=== PATIENT | female | born 2000 | race Caucasian/White ===

== ENCOUNTER 2022-07-25 10:58 | Inpatient (IN) | payer MEDICAID ==
[~2022-07-25] VITALS: Ht 162.6 cm; Wt 112.9 kg
[2022-07-25] VITALS (54 sets, daily range): BP systolic 82–167; BP diastolic 43–82
[2022-07-25] MEDS ORDERED: LIDOCAINE 1% INJ 10 ML VIAL INJ PRN (11:30)
[2022-07-25 11:43] LABS: BASOPHILS % (AUTO) 0 % (0-10); EOSINOPHILS # (AUTO) 0.1 10^3/uL (0.0-0.3); EOSINOPHILS % (AUTO) 1 % (0-10); HEMATOCRIT 37 % (35-52); HEMOGLOBIN 12.6 g/dL (11.5-16.0); LYMPHOCYTES # (AUTO) 1.5 10^3/uL (1.0-4.0); LYMPHOCYTES % (AUTO) 15 % (12-44); MEAN CORPUSCULAR HEMOGLOBIN 30 pg (25-34); MEAN CORPUSCULAR HGB CONC 34 g/dL (32-36); MEAN CORPUSCULAR VOLUME 89 fL (80-99); MEAN PLATELET VOLUME 10.6 fL (9.0-12.2); MONOCYTES # (AUTO) 0.7 10^3/uL (0.0-1.0); MONOCYTES % (AUTO) 7 % (0-12); NEUTROPHILS # (AUTO) 7.2 10^3/uL (1.8-7.8); NEUTROPHILS % (AUTO) 75 % (42-75); PLATELET COUNT 186 10^3/uL (130-400); WHITE BLOOD COUNT 9.7 10^3/uL (4.3-11.0)
[2022-07-25] MEDS: D5 LR IV SOLUTION 1,000 ML IV SCH ×2 (11:43→19:24)
[2022-07-25] MEDS ORDERED: OXYTOCIN PRE-MIX DRIP 500 ML IV SCH (12:45)
--- NOTE | 2022-07-25 13:33 | History & Physical-OB ---
MARISOL YOUSSEF 07/25/22 1332: OB - Chief Complaint & HPI Date/Time Date of Admission: Date of Admission: Jul 25, 2022 at 10:58 Date seen by a Provider: Jul 25, 2022 Time Seen by a Provider: 13:23 Chief Complaint/History OB-Reason for Admission/Chief: Induction of Labor Hx : 2 Hx Para: 1 Expected Date of Delivery: Jul 25, 2022 Gestational Age in Weeks: 40 Gestational Age in Days: 0 History of Labs Blood Type A+ HepB NR HIV NR RPR NR Rubella immune GBS neg Allergies and Home Medications Allergies Coded Allergies: adhesive tape (Verified Allergy, Unknown, 07/25/22) butorphanol (Verified Allergy, Unknown, 07/25/22) latex (Verified Allergy, Unknown, 07/25/22) tetanus and diphtheria toxoids (Verified Allergy, Unknown, 07/25/22) Patient Home Medication List Home Medication List Reviewed: Yes OB - History Hx of Present Care: Yes Ultrasounds: Normal mid trimester US Obstetrical Complications: None Medical Complications: None Obstetrical History Hx : 2 Hx Para: 1 Hx # Term Pregnancies: 0 Hx # Pregnancies: 0 Number of Living Children: 0 Hx Termination: Yes Hx Total # of Abortions (Spona: 1 Patient Past Medical History none Immunizations Influenza Vaccine Up-to-Date: Yes; Up-to-Date COVID19 Vaccine Space [employer] Faculty Member: KIMBERLYNA OB - Admission Exam Physical Exam Vitals: Vital Signs 07/25/22 07/25/22 11:20 12:52 Pulse 90 Resp 18 B/P (MAP) 119/73 (88) Pulse Ox 98 O2 Delivery Room Air HEENT: NCAT Heart: Rhythm Normal Lungs: Clear Abdomen: Non tender Extremities: Normal Reflexes: Normal Cervical Dilatation: 3cm Effacement: 75% Membranes: Ruptured Amniotic Fluid: Clear Heart Rate: 130's Contractions on Admission: None Labs Laboratory Tests Test 07/25/22 11:30 Range/Units White Blood Count 9.7 4.3-11.0 10^3/uL Red Blood Count 4.17 3.80-5.11 10^6/uL Hemoglobin 12.6 11.5-16.0 g/dL Hematocrit 37 35-52 % Mean Corpuscular Volume 89 80-99 fL Mean Corpuscular Hemoglobin 30 25-34 pg Mean Corpuscular Hemoglobin Concent 34 32-36 g/dL Red Cell Distribution Width 14.9 H 10.0-14.5 % Platelet Count 186 130-400 10^3/uL Mean Platelet Volume 10.6 9.0-12.2 fL Immature Granulocyte % (Auto) 2 % Neutrophils (%) (Auto) 75 42-75 % Lymphocytes (%) (Auto) 15 12-44 % Monocytes (%) (Auto) 7 0-12 % Eosinophils (%) (Auto) 1 0-10 % Basophils (%) (Auto) 0 0-10 % Neutrophils # (Auto) 7.2 1.8-7.8 10^3/uL Lymphocytes # (Auto) 1.5 1.0-4.0 10^3/uL Monocytes # (Auto) 0.7 0.0-1.0 10^3/uL Eosinophils # (Auto) 0.1 0.0-0.3 10^3/uL Basophils # (Auto) 0.0 0.0-0.1 10^3/uL Immature Granulocyte # (Auto) 0.2 H 0.0-0.1 10^3/uL OB - Assessment/Plan/Diagnosis Assessment Assessment: induction of labor Admission Dx 21 y/o IOL @ 40 weeks Admission Status: Inpatient Order (span 2 midnights) Reason for Inpatient Admission: IOL @ 40 weeks Plan Plan: Induction Induction Method: per Pitocin Protocol CHAPIN MONROE DO 07/25/222132: Allergies and Home Medications Allergies Coded Allergies: adhesive tape (Verified Allergy, Unknown, 07/25/22) butorphanol (Verified Allergy, Unknown, 07/25/22) latex (Verified Allergy, Unknown, 07/25/22) tetanus and diphtheria toxoids (Verified Allergy, Unknown, 07/25/22) OB - Assessment/Plan/Diagnosis Plan Other Plan Verification and Attestation of Medical Student E/M Service A medical student performed and documented this service in my presence. I reviewed and verified all information documented by the medical student and made modifications to such information, when appropriate. I personally performed the physical exam and medical decision making. Chapin Monroe, Jul 25, 2022,21:33 MARISOL YOUSSEF Jul 25, 2022 13:32 CHAPIN MONROE DO Jul 25, 2022 21:33
[2022-07-25] MEDS ORDERED: fentaNYL 2 mcg/ml BUPIVA 0.125 100 ML ONE (15:46)
[2022-07-25] MEDS ORDERED: LIDOCAINE PF 2% 5 ML (XYLOCAINE) VIAL ONE (16:10)
[2022-07-25] MEDS ORDERED: fentaNYL INJ 100 MCG/2 ML AMP ONE (16:10)
[2022-07-25] MEDS ORDERED: ONDANSETRON 4 MG/2 ML (SDV) Z0FRAN IV PRN (16:45)
[2022-07-25] MEDS ORDERED: diphenhydrAMINE 50 MG/ML INJ (BENADRYL) IV PRN (16:45)
[2022-07-25] MEDS ORDERED: NALOXONE 0.4 MG/ML 1 ML (NARCAN) VIAL IV PRN ×3 (16:45→21:45)
[2022-07-25] MEDS ORDERED: LACTATED RINGERS 1,000 ML IV SCH (16:45)
[2022-07-25] MEDS ORDERED: fentaNYL 2 mcg/ml BUPIVA 0.125 100 ML EPI SCH (16:45)
[2022-07-25] MEDS ORDERED: METOCLOPRAMIDE INJ 10 MG/2 ML (REGLAN) IV PRN (16:45)
[2022-07-25] MEDS ORDERED: BENZOCAINE/MENTHOL (DERMOPLAST) 56 ML CAN TP PRN (21:45)
[2022-07-25] MEDS ORDERED: MEASLES,MUMPS,RUBELLA 1 EA INJ SQ ONE (21:45)
[2022-07-25] MEDS ORDERED: DIBUCAINE 1% OINTMENT 28 GM TUBE TOP PRN (21:45)
[2022-07-25] MEDS: CATHETER FLUSH 10 ML SYR IV SCH ×3 (22:00→22:26)
[2022-07-25] MEDS ORDERED: METHYLERGONOVINE 0.2 MG/ML (METHERGINE) AMP ONE (22:33)
[2022-07-25] MEDS ORDERED: HYDROmorphone 2 MG/ML VIAL (DILAUDID) ONE (22:37)
[2022-07-25] MEDS: OXYTOCIN PRE-MIX DRIP 500 ML IV SCH ×2 (22:59→23:43)
--- NOTE | 2022-07-25 22:59 | OB Labor & Delivery Record ---
L&D History Date of Service Date of Service: Jul 25, 2022 History Expected Date of Delivery: Jul 25, 2022 Gestational Age in Weeks: 40 Hx : 2 Hx Para: 1 Complications Events: Routine care Operative Indications (Cesarea: N/A-Vaginal Delivery Intrapartal Events: None L&D Stage1 Stage One Onset of Labor - Date: Jul 25, 2022 Monitors and Tracing Monitor Mode: External Heart Rate: 125 Monitor Accelerations: Uniform Monitor Decelerations: None Station: 0 Back Sizer Variability: Moderate (11-25) Short Term Variability: Present Vital Signs VS - Last 72 Hours, by Label 07/25/22 07/25/22 07/25/22 07/25/22 11:20 11:20 12:52 13:22 Temp 36.8 36.7 Pulse 98 98 90 85 Resp 18 18 18 18 B/P (MAP) 126/77 (93) 119/73 (88) 124/74 (91) Pulse Ox 98 98 O2 Delivery Room Air Room Air Room Air Room Air 07/25/22 07/25/22 07/25/22 07/25/22 13:39 13:53 14:08 14:23 Pulse 89 96 86 81 Resp 18 18 18 18 B/P (MAP) 126/61 (82) 112/59 (76) 121/69 (86) 108/60 (76) O2 Delivery Room Air Room Air Room Air Room Air 07/25/22 07/25/22 07/25/22 07/25/22 14:45 14:51 15:07 15:21 Pulse 78 83 81 78 Resp 18 18 18 18 B/P (MAP) 92/50 (64) 97/55 (69) 92/61 (71) 99/59 (72) O2 Delivery Room Air Room Air Room Air Room Air 07/25/22 07/25/22 07/25/22 07/25/22 15:39 15:52 16:09 16:22 Pulse 94 81 86 95 Resp 18 18 18 18 B/P (MAP) 122/61 (81) 105/60 (75) 112/75 (87) 121/56 (77) Pulse Ox 97 O2 Delivery Room Air Room Air Room Air Room Air 07/25/22 07/25/22 07/25/22 07/25/22 16:26 16:28 16:31 16:33 Temp 36.1 Pulse 96 93 94 100 Resp 18 18 18 18 B/P (MAP) 118/57 (77) 115/56 (75) 112/56 (74) 93/56 (68) Pulse Ox 98 O2 Delivery Room Air Room Air Room Air Room Air 07/25/22 07/25/22 07/25/22 07/25/22 16:37 16:40 16:42 16:45 Pulse 117 121 115 118 Resp 18 18 18 18 B/P (MAP) 91/52 (65) 91/55 (67) 99/58 (72) 101/56 (71) Pulse Ox 100 97 O2 Delivery Room Air Room Air Room Air Room Air 07/25/22 07/25/22 07/25/22 07/25/22 16:48 16:51 16:58 17:07 Pulse 102 109 92 92 Resp 18 18 18 18 B/P (MAP) 91/52 (65) 98/55 (69) 100/58 (72) 100/56 (71) Pulse Ox 98 99 99 98 O2 Delivery Room Air Room Air Room Air Room Air 07/25/22 07/25/22 07/25/22 07/25/22 17:16 17:22 17:40 17:55 Pulse 91 87 83 94 Resp 18 18 18 18 B/P (MAP) 116/69 (85) 119/71 (87) 112/67 (82) 102/63 (76) Pulse Ox 98 99 99 100 O2 Delivery Room Air Room Air Room Air Room Air 07/25/22 07/25/22 07/25/22 07/25/22 18:11 18:27 18:40 18:54 Pulse 85 95 90 94 Resp 18 18 18 18 B/P (MAP) 111/71 (84) 112/72 (85) 111/68 (82) 118/75 (89) Pulse Ox 99 100 98 98 O2 Delivery Room Air Room Air Room Air Room Air 07/25/22 07/25/22 07/25/22 07/25/22 19:10 19:25 19:37 20:12 Temp 35.8 Pulse 92 92 109 Resp 18 B/P (MAP) 115/73 (87) 112/70 (84) 112/80 (91) Pulse Ox 98 99 99 O2 Delivery Room Air Room Air Room Air 407/25/22 07/25/22 07/25/22 20:28 20:43 20:58 21:11 Pulse 124 112 122 99 B/P (MAP) 109/60 (76) 130/77 (94) 153/74 (100) 167/82 (110) Pulse Ox 100 99 98 O2 Delivery Room Air Room Air Room Air Room Air 07/25/22 21:26 Pulse 113 B/P (MAP) 158/69 (98) O2 Delivery Room Air Rupture of Membranes Spontaneous Ruture of Membrane: No Amniotic Membrane Rupture Time: 1303 Amniotic Membrane Fluid Desc.: Clear Vaginal Bleeding Description: Normal Show Induction/Anesthesia Epidural Cath Placement - Time: 1621 Progress/Notes Patient admitted for postdates IOL. AROM performed followed by pitocin augmentation to max dose of 6 mu. Epidural placed at patient request, she then progressed to complete and + 1 station L&D Stage2 Stage Two Stage II Date: Jul 25, 2022 Monitors and Tracing Monitor Mode: External Heart Rate: 125 Position: Right Occiput Anterior Presentation: Vertex Cord Descript/Complications Cord Vessel Description: 3 Vessels Delivery Type Infant Delivery Method: Spontaneous Vaginal Anterior Shoulder: Left Episiotomy/Perineal Laceration Laceraction(s)/Extensions: Yes Episiotomy Description: Perineal Extension/lac, 2nd degree Degree (describe repair) 3-0 vicryl suture and 2-0 used to repair 2nd degree perineal laceration in usual fashion. Condition of Infant Delivery 1 minute Comment: 9 5 minute Comment: 9 Notes Live male infant weight 9lbs 14 oz Condition of Condition of : Living Exam: No Observed Abnormalities Resuscitation Resuscitation: N/A - Spontaneous Resp L&D Stage3 Stage Three Stage III Date: Jul 25, 2022 Pictocin Pitocin Administration mu/min: 6 Pitocin ml/hr: 6 Pitocin Administration Comment: 30 mu wide open after delivery of placenta Placenta Delivery Placenta Delivery: Spontaneous Delivery Summary Summary Estimated blood loss (mL): 650 Attending at delivery: Russ Monroe DO Condition of Delivery Examined: Cervix Examined, Uterus Explored Post Hemorrhage: Yes Intervention Required .02 mg Methergine given IM with good tone response. Condition of Mother stable Condition of (s) stable RUSS MONROE DO Jul 25, 2022 22:59
[2022-07-25] MEDS ORDERED: METHYLERGONOVINE 0.2 MG/ML (METHERGINE) AMP IM ONE ×2 (23:00→23:30)
[2022-07-25] MEDS: WITCH HAZEL(TUCKS) 40 EA JAR TOP PRN (23:11)
[2022-07-25] MEDS ORDERED: HYDROmorphone 2 MG/ML VIAL (DILAUDID) IVP ONE (23:15)
[2022-07-25] MEDS: IBUPROFEN 600 MG (MOTRIN) TAB PO SCH (23:55)
[2022-07-26] VITALS (7 sets, daily range): BP systolic 107–125; BP diastolic 66–76
[2022-07-26] MEDS: D5 LR IV SOLUTION 1,000 ML IV SCH (00:32)
[2022-07-26 05:45] LABS: BASOPHILS # (AUTO) 0.1 10^3/uL (0.0-0.1); BASOPHILS % (AUTO) 0 % (0-10); EOSINOPHILS % (AUTO) 0 % (0-10); HEMATOCRIT 29 % (35-52); HEMOGLOBIN 9.5 g/dL (11.5-16.0); LYMPHOCYTES # (AUTO) 0.7 10^3/uL (1.0-4.0); LYMPHOCYTES % (AUTO) 4 % (12-44); MEAN CORPUSCULAR HEMOGLOBIN 30 pg (25-34); MEAN CORPUSCULAR HGB CONC 33 g/dL (32-36); MEAN CORPUSCULAR VOLUME 90 fL (80-99); MEAN PLATELET VOLUME 11.3 fL (9.0-12.2); MONOCYTES # (AUTO) 1.2 10^3/uL (0.0-1.0); MONOCYTES % (AUTO) 6 % (0-12); NEUTROPHILS # (AUTO) 16.8 10^3/uL (1.8-7.8); NEUTROPHILS % (AUTO) 89 % (42-75); PLATELET COUNT 139 10^3/uL (130-400); WHITE BLOOD COUNT 18.8 10^3/uL (4.3-11.0)
[2022-07-26] MEDS: CATHETER FLUSH 10 ML SYR IV SCH ×2 (06:00→19:38)
--- NOTE | 2022-07-26 07:03 | Postpartum Progress Note ---
DALI DOMINGUEZ 07/26/22 0703: Note Note Day # 1 Subjective: Patient is without complaints. Tolerating a regular diet without nausea or vomiting. Normal lochia. Pain is well controlled with oral pain medications. She ambulated to bathroom for the first time without a wheelchair and endorses minimal orthostatic hypotension. Patient has not urinated and is getting straight catheterization due to urinary retention. Objective: Physical Exam: General - Alert and oriented, no apparent distress Cardio - RRR, no murmurs or gallops Pulmonary - CTAB Abdomen - Soft, appropriately tender to palpation, non-distended, fundus firm at umbilicus Extremities - no edema, negative Megan's bilaterally Assessment: post- day # 1, status post vaginal delivery. Acute blood loss anemia due to hemorrhage. Urinary retention Leukocytosis Plan: Routine care. Encourage breast feeding. Encourage ambulation. Encouraged her to take her time standing due to orthostatic hypotension. Straight catheterization for urinary retention. Ferrous sulfate supplementation. Plan for discharge 07/27. Vitals - Labs Vital Signs - I&O Vital Signs Date Time Temp Pulse Resp B/P (MAP) Pulse Ox O2 Delivery O2 Flow Rate FiO2 07/26/22 00:24 36.3 103 115/71 (86) 07/26/22 00:10 107 107/73 (84) 07/25/22 23:41 96 104/60 (75) 07/25/22 23:24 100 113/56 (75) 99 Room Air 07/25/22 23:10 109 108/56 (73) 98 Room Air 07/25/22 23:06 112 110/57 (74) 99 Room Air 07/25/22 22:47 106 103/50 (67) 07/25/22 22:44 105 99/52 (68) 99 Room Air 07/25/22 22:39 108 107/59 (75) Room Air 07/25/22 22:36 105 100 Room Air 07/25/22 22:36 112 82/43 (56) Room Air 07/25/22 22:25 123 122/74 (90) Room Air 07/25/22 22:09 134 100 Room Air 07/25/22 21:56 121 119/73 (88) Room Air 07/25/22 21:42 125 115/74 (88) Room Air 07/25/22 21:26 113 158/69 (98) Room Air 07/25/22 21:11 99 167/82 (110) Room Air 07/25/22 20:58 122 153/74 (100) 98 Room Air 07/25/22 20:43 112 130/77 (94) 99 Room Air 07/25/22 20:28 124 109/60 (76) 100 Room Air 07/25/22 20:12 109 112/80 (91) 99 Room Air 07/25/22 19:37 35.8 07/25/22 19:25 92 112/70 (84) 99 Room Air 07/25/22 19:10 92 18 115/73 (87) 98 Room Air 07/25/22 18:54 94 18 118/75 (89) 98 Room Air 07/25/22 18:40 90 18 111/68 (82) 98 Room Air 07/25/22 18:27 95 18 112/72 (85) 100 Room Air 07/25/22 18:11 85 18 111/71 (84) 99 Room Air 07/25/22 17:55 94 18 102/63 (76) 100 Room Air 07/25/22 17:40 83 18 112/67 (82) 99 Room Air 07/25/22 17:22 87 18 119/71 (87) 99 Room Air 07/25/22 17:16 91 18 116/69 (85) 98 Room Air 07/25/22 17:07 92 18 100/56 (71) 98 Room Air 07/25/22 16:58 92 18 100/58 (72) 99 Room Air 07/25/22 16:51 109 18 98/55 (69) 99 Room Air 07/25/22 16:48 102 18 91/52 (65) 98 Room Air 07/25/22 16:45 118 18 101/56 (71) Room Air 07/25/22 16:42 115 18 99/58 (72) 97 Room Air 07/25/22 16:40 121 18 91/55 (67) Room Air 07/25/22 16:37 117 18 91/52 (65) 100 Room Air 07/25/22 16:33 100 18 93/56 (68) 98 Room Air 07/25/22 16:31 36.1 94 18 112/56 (74) Room Air 07/25/22 16:28 93 18 115/56 (75) Room Air 07/25/22 16:26 96 18 118/57 (77) Room Air 07/25/22 16:22 95 18 121/56 (77) 97 Room Air 07/25/22 16:09 86 18 112/75 (87) Room Air 07/25/22 15:52 81 18 105/60 (75) Room Air 07/25/22 15:39 94 18 122/61 (81) Room Air 07/25/22 15:21 78 18 99/59 (72) Room Air 07/25/22 15:07 81 18 92/61 (71) Room Air 07/25/22 14:51 83 18 97/55 (69) Room Air 07/25/22 14:45 78 18 92/50 (64) Room Air 07/25/22 14:23 81 18 108/60 (76) Room Air 07/25/22 14:08 86 18 121/69 (86) Room Air 07/25/22 13:53 96 18 112/59 (76) Room Air 07/25/22 13:39 89 18 126/61 (82) Room Air 07/25/22 13:22 36.7 85 18 124/74 (91) Room Air 07/25/22 12:52 90 18 119/73 (88) Room Air 07/25/22 11:20 98 18 126/77 (93) 98 Room Air 07/25/22 11:20 36.8 98 18 98 Room Air I & O 07/26/22 07:00 Intake Total 2000 ml Balance 2000 ml Labs Laboratory Tests 07/25/22 11:30: White Blood Count 9.7, Red Blood Count 4.17, Hemoglobin 12.6, Hematocrit 37, Mean Corpuscular Volume 89, Mean Corpuscular Hemoglobin 30, Mean Corpuscular Hemoglobin Concent 34, Red Cell Distribution Width 14.9H, Platelet Count 186, Mean Platelet Volume 10.6, Immature Granulocyte % (Auto) 2, Neutrophils (%) (Auto) 75, Lymphocytes (%) (Auto) 15, Monocytes (%) (Auto) 7, Eosinophils (%) (Auto) 1, Basophils (%) (Auto) 0, Neutrophils # (Auto) 7.2, Lymphocytes # (Auto) 1.5, Monocytes # (Auto) 0.7, Eosinophils # (Auto) 0.1, Basophils # (Auto) 0.0, Immature Granulocyte # (Auto) 0.2H, Syphilis Serology Non-Reactive 07/26/22 05:03: White Blood Count 18.8H, Red Blood Count 3.17L, Hemoglobin 9.5#L, Hematocrit 29L , Mean Corpuscular Volume 90, Mean Corpuscular Hemoglobin 30, Mean Corpuscular Hemoglobin Concent 33, Red Cell Distribution Width 14.7H, Platelet Count 139, Mean Platelet Volume 11.3, Immature Granulocyte % (Auto) 1, Neutrophils (%) (Auto) 89H, Lymphocytes (%) (Auto) 4L, Monocytes (%) (Auto) 6, Eosinophils (%) (Auto) 0, Basophils (%) (Auto) 0, Neutrophils # (Auto) 16.8H, Lymphocytes # (Auto) 0.7L, Monocytes # (Auto) 1.2H, Eosinophils # (Auto) 0.0, Basophils # (Auto) 0.1, Immature Granulocyte # (Auto) 0.2H RUSS MONROE DO 07/27/22 0804: Note Note Verification and Attestation of Medical Student E/M Service A medical student performed and documented this service in my presence. I reviewed and verified all information documented by the medical student and made modifications to such information, when appropriate. I personally performed the physical exam and medical decision making. Russ Monroe, Jul 27, 2022,08:04 DALI DOMINGUEZ Jul 26, 2022 07:03 RUSS MONROE DO Jul 27, 2022 08:04
--- NOTE | 2022-07-26 08:00 | Discharge Inst-Women's Service ---
Discharge Inst-Women's Serv Depart Medication/Instructions New, Converted or Re-Newed RX: Transmitted to Pharmacy Final Diagnosis PPD 2 NVD Problems Reviewed?: Yes Consults/Follow Up Additional Follow Up: Yes Orders/Referrals Dr. Monroe in 6 weeks Activity Activity: Activity as Tolerated Driving Instructions: No Driving for 1 Week NO SMOKING: NO SMOKING Nothing Inside Vagina: No Douching, No [place], No Tampons Diet Discharge Diet: No Restrictions Symptoms to Report to : Bleeding Excessive, Pain Increased, Fever Over 101 Degrees F, Vaginal Bleeding Increase, Questions/Concerns For Any Problems or Questions: Contact Your Physician RUSS MONROE DO Jul 26, 2022 08:00
[2022-07-26] MEDS ORDERED: IBUP-844 PO (08:01)
[2022-07-26] MEDS ORDERED: DOCU100C37 PO (08:01)
[2022-07-26] MEDS ORDERED: ACHD5005 PO (08:01)
[2022-07-26] MEDS ORDERED: FERR325T24 PO (08:01)
[2022-07-26] MEDS: FERROUS SULF 325 MG (IRON) TAB PO SCH (09:16)
[2022-07-26] MEDS: DOCUSATE SODIUM 100 MG (COLACE) CAP PO SCH ×2 (09:17→21:16)
[2022-07-26] MEDS: PRENATAL VITAMIN 1 EA TAB PO SCH (09:17)
[2022-07-26] MEDS: IBUPROFEN 600 MG (MOTRIN) TAB PO SCH ×4 (09:17→21:16)
--- NOTE | 2022-07-26 09:20 | Anesthesia-Regional Post-Op ---
Regional Patient Condition Mental Status: Alert, Oriented x3 Circulation: Same as Pre-Op Headache: Absent Sensation: Full Recovery Motor Block: Absent Post Op Complications Complications None Follow Up Care/Instructions Patient Instructions None needed. Anesthesia/Patient Condition Patient is doing well, no complaints, stable vital signs, no apparent adverse anesthesia problems. No complications reported per nursing. CLEMENTE SHAW CRNA Jul 26, 2022 09:20
[2022-07-26] MEDS: HYDROcodone/APAP 5 MG/325 MG (LORTAB) TAB PO PRN (17:36)
[2022-07-27] MEDS: WITCH HAZEL(TUCKS) 40 EA JAR TOP PRN (01:51)
[2022-07-27] MEDS: HYDROcodone/APAP 5 MG/325 MG (LORTAB) TAB PO PRN (01:51)
[2022-07-27 03:47] VITALS: BP 111/68
[2022-07-27] MEDS: IBUPROFEN 600 MG (MOTRIN) TAB PO SCH ×2 (03:47→09:13)
--- NOTE | 2022-07-27 06:43 | Postpartum Progress Note ---
DALI DOMINGUEZ 07/27/22 0643: Note Note Day # 2 Subjective: Patient is without complaints. Ambulating, voiding. Tolerating a regular diet without nausea or vomiting. Normal lochia. Pain is well controlled with oral pain medications. Objective: Physical Exam: General - Alert and oriented, no apparent distress Abdomen - Soft, appropriately tender to palpation, non-distended, fundus firm at umbilicus Extremities - no edema, negative Megan's bilaterally Assessment: post- day # 2, status post vaginal delivery. Recovering well. Acute blood loss anemia Plan: Routine care. Encourage breast feeding. Encourage careful ambulation. Take time getting up due to orthostatic hypotension. Ferrous sulfate supplementation. Plan for discharge 07/27/22 Vitals - Labs Vital Signs - I&O Vital Signs Date Time Temp Pulse Resp B/P (MAP) Pulse Ox O2 Delivery O2 Flow Rate FiO2 07/27/22 03:47 36.8 89 18 111/68 (82) 97 Room Air 07/26/22 21:16 36.6 94 18 115/76 (89) 98 Room Air 07/26/22 17:30 36.7 92 18 116/67 (83) 98 Room Air 07/26/22 13:00 36.7 99 20 110/70 (83) 96 Room Air 07/26/22 09:00 36.3 92 20 107/66 (80) 100 Room Air Labs Laboratory Tests Test 07/25/22 11:30 07/26/22 05:03 Range/Units White Blood Count 9.7 18.8 H 4.3-11.0 10^3/uL Red Blood Count 4.17 3.17 L 3.80-5.11 10^6/uL Hemoglobin 12.6 9.5 #L 11.5-16.0 g/dL Hematocrit 37 29 L 35-52 % Mean Corpuscular Volume 89 90 80-99 fL Mean Corpuscular Hemoglobin 30 30 25-34 pg Mean Corpuscular Hemoglobin Concent 34 33 32-36 g/dL Red Cell Distribution Width 14.9 H 14.7 H 10.0-14.5 % Platelet Count 186 139 130-400 10^3/uL Mean Platelet Volume 10.6 11.3 9.0-12.2 fL Immature Granulocyte % (Auto) 2 1 % Neutrophils (%) (Auto) 75 89 H 42-75 % Lymphocytes (%) (Auto) 15 4 L 12-44 % Monocytes (%) (Auto) 7 6 0-12 % Eosinophils (%) (Auto) 1 0 0-10 % Basophils (%) (Auto) 0 0 0-10 % Neutrophils # (Auto) 7.2 16.8 H 1.8-7.8 10^3/uL Lymphocytes # (Auto) 1.5 0.7 L 1.0-4.0 10^3/uL Monocytes # (Auto) 0.7 1.2 H 0.0-1.0 10^3/uL Eosinophils # (Auto) 0.1 0.0 0.0-0.3 10^3/uL Basophils # (Auto) 0.0 0.1 0.0-0.1 10^3/uL Immature Granulocyte # (Auto) 0.2 H 0.2 H 0.0-0.1 10^3/uL Syphilis Serology Non-Reactive Non-Reactive RUSS MONROE DO 07/27/22 0804: Note Note Verification and Attestation of Medical Student E/M Service A medical student performed and documented this service in my presence. I reviewed and verified all information documented by the medical student and made modifications to such information, when appropriate. I personally performed the physical exam and medical decision making. Russ Monroe, Jul 27, 2022,08:04 DALI DOMINGUEZ Jul 27, 2022 06:43 RUSS MONROE DO Jul 27, 2022 08:04
[2022-07-27 09:13] VITALS: BP 113/67
[2022-07-27] MEDS: PRENATAL VITAMIN 1 EA TAB PO SCH (09:13)
[2022-07-27] MEDS: FERROUS SULF 325 MG (IRON) TAB PO SCH (09:13)
[2022-07-27] MEDS: DOCUSATE SODIUM 100 MG (COLACE) CAP PO SCH (09:13)
== END 2022-07-27 11:55 | disposition home or self-care (01) | DRG 806 ==
LOC: LDRP 10:58
PROVIDERS: ADMIT Obstetrics & Gynecology; ATTEND Obstetrics & Gynecology
PROC: 10E0XZZ Delivery of Products of Conception, External Approach (ICD-10-PCS; principal; 2022-07-25)
PROC: 0KQM0ZZ Repair Perineum Muscle, Open Approach (ICD-10-PCS; 2022-07-25)
PROC: 0W8NXZZ Division of Female Perineum, External Approach (ICD-10-PCS; 2022-07-25)
PROC: 10907ZC Drainage of Amniotic Fluid, Therapeutic from Products of Conception, Via Natural or Artificial Opening (ICD-10-PCS; 2022-07-25)
DX: O48.0 Post-term pregnancy (principal); D62 Acute posthemorrhagic anemia; Z37.0 Single live birth; O72.1 Other immediate postpartum hemorrhage; Z3A.40 40 weeks gestation of pregnancy; O70.1 Second degree perineal laceration during delivery; O90.81 Anemia of the puerperium; R33.9 Retention of urine, unspecified; D72.829 Elevated white blood cell count, unspecified; I95.1 Orthostatic hypotension
CPT/HCPCS: 36415; 85025; 86780; 86850; 86900; 86901